=== PATIENT | female | born 1990 | race Caucasian/White ===

== ENCOUNTER → 2021-05-01 09:40 | Outpatient (BNVA) | payer OTHER, SELFPAY | PROVIDERS: PCP Nurse Practitioner Pediatrics; Visit Provider Internal Medicine ==

== ENCOUNTER 2021-06-19 07:46 | Outpatient (REF) | payer OTHER, SELFPAY ==
[2021-06-19 09:01] LABS: Estimated Average Glucose 111 mg/dL; Hemoglobin A1c % 5.5 %
[2021-06-19 10:21] LABS: Alanine Aminotransferase 48 U/L (0-31); Alkaline Phosphatase 56 U/L (39-117); Anion Gap 10 (12-20); Aspartate Amino Transferase 19 U/L (5-31); Bilirubin Total 0.4 mg/dL (0.0-1.0); Blood Urea Nitrogen 10 mg/dL (9-16); Carbon Dioxide 27 mmol/L (22-29); Chloride 107 mmol/L (96-108); Cholesterol 183 mg/dL; Estimated Glomerular Filt Rate > 60; Glucose Random 94 mg/dL (60-115); HDL Cholesterol 34 mg/dL; LDL Cholesterol Calculated 106 mg/dl; Potassium 4.2 mmol/L (3.3-5.1); Sodium 140 mmol/L (135-145); Total Protein 6.9 g/dL (6.5-8.0); Triglycerides 217 mg/dL
[2021-06-19 10:45] LABS: Free T4 (Free Thyroxine) 0.98 ng/dL (0.71-1.85); HCG Quantitative < 2 mIU/mL; Thyroid Stimulating Hormone 3.14 uIU/mL (0.32-4.0)
[2021-06-19 10:49] LABS: Glucose Fasting 95 mg/dL (60-99)
[2021-06-19 10:49] LABS: Glucose 1 Hour 160 mg/dL
[2021-06-19 10:49] LABS: Glucose 2 Hour 150 mg/dL
[2021-06-21 03:41] LABS: LDL Cholesterol Direct 126 mg/dL (<100)
[2021-06-21 05:47] LABS: DHEA Sulfate 174 mcg/dL (18-391)
[2021-06-21 14:25] LABS: Follicle Stimulating Hormone 6.2 mIU/mL; Lutenizing Hormone 8.1 mIU/mL; Prolactin 14.8 ng/mL
[2021-06-25 15:46] LABS: Testosterone, Free 10.3 pg/mL (0.1-6.4); Testosterone, Total 52 ng/dL (2-45)
[2021-06-26 19:27] LABS: Androstenedione 151 ng/dL
[2021-06-29 03:42] LABS: Estradiol Free 0.88 pg/mL; Estradiol, Ultrasensitive 35 pg/mL
[2021-07-08 16:21] LABS: Adrenocorticotropic Hormone 15 pg/mL (6-50)
== END 2021-06-19 07:47 | disposition home or self-care (01) ==
LOC: HO.10HDL 07:46
PROVIDERS: Visit Provider Internal Medicine
DX: L65.9 Nonscarring hair loss, unspecified (principal)
CPT/HCPCS: 36415; 80053; 80061; 82024; 82157; 82627; 82670; 82681; 83001; 83002; 83036; 83498; 83721; 84146; 84402; 84403; 84439; 84443; 84702

== ENCOUNTER → 2021-07-08 09:14 | Outpatient (BNVA) | payer OTHER, SELFPAY | PROVIDERS: PCP Nurse Practitioner Pediatrics; Visit Provider Internal Medicine ==

== ENCOUNTER 2021-09-19 08:40 | Outpatient (REF) | payer OTHER, SELFPAY ==
--- NOTE | ~2021-09-19 | US_ITS ---
EXAMINATION: ULTRASOUND PELVIS COMPLETE CLINICAL INFORMATION: Uterus regular menses, hyperandrogenism. COMPARISON: None TECHNIQUE: Transabdominal and transvaginal ultrasound of the pelvis is performed. FINDINGS: The uterus is anteverted and anteflexed measuring 6.71 cm in length, 3.25 cm in AP and 3.99 cm in transverse dimension. Endometrial thickness is 0.68 cm. There is a small hypoechoic lesion in the posterior body of uterus measuring 0.57 x 0.43 x 0.78 cm. No additional lesions seen. There are small nabothian cysts in the cervix. The right ovary measures 2.9 x 1.8 x 2.1 cm and volume 5.7 mL. There is an exophytic simple cyst measuring 2.1 x 2.0 x 2.0 cm. The left ovary measures 2.7 x 2.0 x 1.9 cm and volume 5.4 mL. There is no free fluid in the cul-de-sac. US/US transvaginal IMPRESSION: Simple right ovarian cyst. Small uterine fibroid in the posterior body of the uterus Small nabothian cysts in the cervix.
--- NOTE | ~2021-09-19 | US_ITS ---
EXAMINATION: ULTRASOUND PELVIS COMPLETE CLINICAL INFORMATION: Uterus regular menses, hyperandrogenism. COMPARISON: None TECHNIQUE: Transabdominal and transvaginal ultrasound of the pelvis is performed. FINDINGS: The uterus is anteverted and anteflexed measuring 6.71 cm in length, 3.25 cm in AP and 3.99 cm in transverse dimension. Endometrial thickness is 0.68 cm. There is a small hypoechoic lesion in the posterior body of uterus measuring 0.57 x 0.43 x 0.78 cm. No additional lesions seen. There are small nabothian cysts in the cervix. The right ovary measures 2.9 x 1.8 x 2.1 cm and volume 5.7 mL. There is an exophytic simple cyst measuring 2.1 x 2.0 x 2.0 cm. The left ovary measures 2.7 x 2.0 x 1.9 cm and volume 5.4 mL. There is no free fluid in the cul-de-sac. US/US pelvic complete IMPRESSION: Simple right ovarian cyst. Small uterine fibroid in the posterior body of the uterus Small nabothian cysts in the cervix.
== END 2021-09-19 08:41 | disposition home or self-care (01) ==
LOC: HO.HMGCX 08:40
PROVIDERS: Visit Provider Internal Medicine
DX: E28.8 Other ovarian dysfunction (principal); L65.9 Nonscarring hair loss, unspecified
CPT/HCPCS: 76830; 76856

== ENCOUNTER 2021-10-19 07:31 | Outpatient (REF) | payer OTHER, SELFPAY ==
[2021-10-19 09:25] LABS: Free T4 (Free Thyroxine) 0.84 ng/dL (0.71-1.85); Thyroid Stimulating Hormone 1.44 uIU/mL (0.32-4.0)
[2021-10-19 09:43] LABS: Vitamin D 25-OH Total 9.4 ng/mL (>30)
[2021-10-21 15:31] LABS: Thyroid Peroxidase Antibodies 35 IU/mL (<9)
[2021-10-24 13:22] LABS: Dexamethasone 340 ng/dL
== END 2021-10-19 07:32 | disposition home or self-care (01) ==
LOC: HO.LAB 07:31
PROVIDERS: Visit Provider Internal Medicine
DX: E28.8 Other ovarian dysfunction (principal); E04.2 Nontoxic multinodular goiter; E55.9 Vitamin D deficiency, unspecified; L65.9 Nonscarring hair loss, unspecified
CPT/HCPCS: 36415; 80299; 82306; 84439; 84443; 86376

== ENCOUNTER → 2021-10-21 08:38 | Outpatient (BNVA) | payer OTHER, SELFPAY | PROVIDERS: PCP Nurse Practitioner Pediatrics; Visit Provider Internal Medicine ==

== ENCOUNTER → 2021-11-20 08:35 | Outpatient (BNVA) | payer OTHER, SELFPAY | PROVIDERS: Visit Provider Obstetrics & Gynecology | DX: N83.209 Unspecified ovarian cyst, unspecified side (principal); N91.5 Oligomenorrhea, unspecified; E28.8 Other ovarian dysfunction | CPT/HCPCS: 99202 ==

== ENCOUNTER 2021-12-09 07:51 | Outpatient (REF) | payer OTHER, SELFPAY | END 2021-12-09 07:52 | disposition home or self-care (01) | LOC: HO.MRI 07:51 | PROVIDERS: Visit Provider Obstetrics & Gynecology | DX: Z13.89 Encounter for screening for other disorder (principal) ==

== ENCOUNTER → 2023-03-11 08:13 | Outpatient (BNVA) | payer OTHER, SELFPAY | PROVIDERS: Visit Provider Internal Medicine ==

== ENCOUNTER 2023-04-07 07:36 | Outpatient (REF) | payer OTHER, SELFPAY ==
--- NOTE | ~2023-04-07 | US_ITS ---
EXAMINATION: US THYROID CLINICAL INFORMATION: Nontoxic multinodular goiter. COMPARISON: None available. TECHNIQUE: Linear transducer grayscale and color Doppler examination with attention to the region of the thyroid. FINDINGS: SIZE: Measurements of the thyroid lobes and nodules are given in sagittal, anteroposterior and transverse dimensions respectively. Right Thyroid Lobe: 5.2 x 1.4 x 2.1 cm, volume 8.0 mL. Parenchyma: The gland echotexture is homogeneous. Thyroid vascularity is normal. Left Thyroid Lobe: 5.0 x 1.4 x 1.7 cm, volume 6.2 mL. Parenchyma: The gland echotexture is homogeneous. Thyroid vascularity is normal. Isthmus: 0.2 cm in maximum AP dimension. Estimated total number of nodules greater than or equal to 1 cm: 1. Laboratory Clerk nodules are described as follows: 1. Location: Right lateral/mid. Size: 0.6 x 0.5 x 0.7 cm, volume 0.09 mL. Nodule characteristics: Composition: Solid (2). Echogenicity: Hypoechoic (2). Shape: Not taller than wide (0). Margins: Smooth (0). Echogenic Foci: None (0). ACR TI-RADS total points: 4 ACR TI-RADS category: 4 2. Location: Left mid. Size: 0.7 x 0.8 x 1.3 cm, volume 0.4 mL. Nodule characteristics: Composition: Solid (2). Echogenicity: Isoechoic (1). Shape: Not taller than wide (0). Margins: Smooth (0). Echogenic Foci: None (0). ACR TI-RADS total points: 3 ACR TI-RADS category: 3 NODES: No lymphadenopathy is seen in the tissue surrounding the thyroid gland. ADDITIONAL FINDINGS: There is a 0.8 x 0.4 x 0.5 cm hyperechoic nodularity abutting the surface of the inferior left lobe of the thyroid. US/US thyroid IMPRESSION: 1. There is a 0.7 cm TR 4 nodule in the right lobe of the thyroid, not meeting size criteria for additional evaluation. 2. There is a 1.3 cm TR 3 nodule in the left lobe of the thyroid, for which a follow-up ultrasound in one year is recommended. 3. Nonspecific hyperechoic 0.8 cm nodule adjacent to the left inferior thyroid, possibly representing a parathyroid lesion/adenoma. Recommend correlation with laboratory workup and if indicated further imaging with a nuclear medicine study. ACR TI-RADS RECOMMENDATION REFERENCE: Ultrasound-guided fine-needle aspiration, followup ultrasound, no further follow up. * TR1 (0 point) and TR2 (2 points): No FNA or follow up. * TR3 (3 points): FNA if more than or equal to 2.5 cm in maximum dimension, followup ultrasound in 1, 3 and 5 years if 1.5 to 2.4 cm in maximum dimension. * TR4 (4-6 points): FNA if more than or equal to 1.5 cm in maximum dimension, followup ultrasound in 1, 2, 3 and 5 years if 1 to 1.4 cm in maximum dimension. * TR5 (more than or equal to 7 points): FNA if more than or equal to 1 cm in maximum dimension, followup ultrasound every year for 5 years if 0.5 to 0.9 cm in maximum dimension. * TR3, TR4 or TR5 nodules that are below the size threshold for followup receive no follow up.
[2023-04-07 09:28] LABS: Alanine Aminotransferase 59 U/L (0-31); Albumin Level 3.9 g/dL (3.5-5.0); Alkaline Phosphatase 50 U/L (39-117); Anion Gap 9 (12-20); Aspartate Amino Transferase 24 U/L (5-31); Bilirubin Total 0.3 mg/dL (0.0-1.0); Blood Urea Nitrogen 9 mg/dL (9-16); Calcium 9.1 mg/dL (8.4-10.2); Carbon Dioxide 29 mmol/L (22-29); Chloride 107 mmol/L (96-108); Estimated Glomerular Filt Rate > 60; Glucose Random 90 mg/dL (60-115); Potassium 4.3 mmol/L (3.3-5.1); Sodium 141 mmol/L (135-145); Total Protein 7.1 g/dL (6.5-8.0)
[2023-04-07 09:41] LABS: Cortisol Random 8.9 ug/dL
[2023-04-11 14:02] LABS: Adrenocorticotropic Hormone 30 pg/mL (6-50)
[2023-04-15 13:32] LABS: Dexamethasone 54 ng/dL
== END 2023-04-07 07:37 | disposition home or self-care (01) ==
LOC: HO.US 07:36
PROVIDERS: Visit Provider Internal Medicine
DX: E04.2 Nontoxic multinodular goiter (principal); E28.8 Other ovarian dysfunction
CPT/HCPCS: 36415; 76536; 80053; 80299; 82024; 82533

== ENCOUNTER 2023-04-17 07:26 | Outpatient (REF) | payer OTHER, SELFPAY ==
--- NOTE | ~2023-04-17 | CT_ITS ---
EXAMINATION: CT ABDOMEN AND PELVIS WITHOUT AND WITH CONTRAST CLINICAL INFORMATION: Other ovarian dysfunction additional notes/special instructions adrenal protocol. COMPARISON: None available. TECHNIQUE: Adrenal protocol CT was performed Contiguous axial thin section helical images of the abdomen were performed before and after the administration of oral contrast and 85 mL of Omnipaque 350 intravenous contrast. Two sets of post contrast imaging were obtained, one during the portal venous phase and another after a 10 minute delay. The data set was reformatted in the coronal and sagittal planes and reviewed on an independent workstation. This CT examination was performed using dose optimization techniques as appropriate, variously including the following: *Automated exposure control *Adjustment of mA and/or kV according to patient size (this includes techniques or standardized protocols for targeted exams where dose is matched to indication/reason for exam; i.e. extremities or head) *Use of iterative reconstruction technique DLP: 1417 mGy-cm LUNG BASES: The visualized lung bases are unremarkable. LIVER, GALLBLADDER, AND BILIARY TREE: The liver is enlarged and demonstrates markedly decreased attenuation consistent with hepatic steatosis. No focal hepatic lesion or biliary ductal dilatation is present. The gallbladder is unremarkable with no evidence of radiopaque gallstones, gallbladder wall thickening, or obvious pericholecystic inflammatory changes. PANCREAS: Unremarkable. SPLEEN: Unremarkable. A splenule is present. ADRENAL GLANDS: There is some minimal thickening of the left adrenal gland but a definite adrenal nodule is not identified. In the thickened area, precontrast, postcontrast and delayed postcontrast Hounsfield units are 18, 57 and 15 which would correspond with an absolute washout of over 100% with relative washout of about 74% consistent with benign findings. KIDNEYS AND URETERS: The kidneys are normal in size, shape, and attenuation. No hydronephrosis, hydroureter, or calculi seen. No perinephric stranding. GASTROINTESTINAL TRACT: The small and large bowel are unremarkable. The appendix is unremarkable. ABDOMINAL WALL: No significant hernia is appreciated. LYMPH NODES: No retroperitoneal lymphadenopathy. VASCULAR: Unremarkable. OSSEOUS STRUCTURES: Unremarkable. BLADDER: Normal. PELVIS: Anteverted uterus appears normal. Benign bilateral ovarian cysts are present. CT/CT abdomen wo/w IV con IMPRESSION: 1. There is some mild thickening of the left adrenal gland but a definite nodule is not seen. 2. Incidental note made of an enlarged fatty liver, benign bilateral ovarian cysts. Fleischner guidelines were followed. .
[2023-04-17 08:26] LABS: Cortisol Random 10.4 ug/dL
[2023-04-17] MEDS: iohexoL 350 MG/ML 100 ML INFUS..BTL IV (09:31)
[2023-04-19 06:38] LABS: DHEA Sulfate 176 mcg/dL (14-349)
[2023-04-21 22:47] LABS: Adrenocorticotropic Hormone 15 pg/mL (6-50)
== END 2023-04-17 07:27 | disposition home or self-care (01) ==
LOC: HO.CT 07:26
PROVIDERS: Visit Provider Internal Medicine
DX: E28.8 Other ovarian dysfunction (principal)
CPT/HCPCS: 36415; 74170; 82024; 82533; 82627; Q9967

== ENCOUNTER 2023-05-12 07:17 | Outpatient (REF) | payer OTHER, SELFPAY ==
[2023-05-12 07:58] LABS: Anion Gap 13 (12-20); Blood Urea Nitrogen 9 mg/dL (9-16); Calcium 9.1 mg/dL (8.4-10.2); Carbon Dioxide 24 mmol/L (22-29); Chloride 109 mmol/L (96-108); Estimated Glomerular Filt Rate > 60; Glucose Random 102 mg/dL (60-115); Potassium 4.1 mmol/L (3.3-5.1); Sodium 142 mmol/L (135-145)
[2023-05-12 08:20] LABS: Cortisol Random 10.4 ug/dL
[2023-05-13 10:59] LABS: DHEA Sulfate 169 mcg/dL (14-349)
[2023-05-13 12:54] LABS: Sex Hormone Binding Globulin 24 nmol/L (17-124)
[2023-05-16 06:19] LABS: Adrenocorticotropic Hormone 31 pg/mL (6-50)
[2023-05-16 15:58] LABS: Metanephrine, Free 35 pg/mL (<=57); Normetanephrines, Free 51 pg/mL (<=148); Total Metanephrine, Free 86 pg/mL (<=205)
[2023-05-16 17:09] LABS: Testosterone, Free 7.2 pg/mL (0.1-6.4); Testosterone, Total 42 ng/dL (2-45)
[2023-05-19 14:47] LABS: Renin 1.13 ng/mL/h (0.25-5.82)
[2023-05-27 17:39] LABS: Catecholamine Frac, Total 217 pg/mL
== END 2023-05-12 07:18 | disposition home or self-care (01) ==
LOC: HO.LAB 07:17
PROVIDERS: Visit Provider Internal Medicine
DX: E27.8 Other specified disorders of adrenal gland (principal)
CPT/HCPCS: 36415; 80048; 82024; 82088; 82384; 82533; 82627; 83835; 84244; 84270; 84402; 84403

== ENCOUNTER 2023-05-18 08:14 | Outpatient (REF) | payer OTHER, SELFPAY ==
[2023-05-18 10:01] LABS: Creatinine, mg/dL 68.09
[2023-05-18 18:07] LABS: Creatinine, 24Hr Urine 1.7 G/Day (1.0-2.0); Total Volume 24 Hour Urine 2525 mL
[2023-05-21 15:48] LABS: CATF, 24 Ur Volume 2525 mL; CATF-24Ur Creatinine 1.66 g/24 h (0.50-2.15); Catecholamines,Tot. (E+NE) 24U 46 mcg/24 h (26-121); Dopamine, 24 Ur 363 mcg/24 h (52-480); Norepinephrine, 24 Ur 46 mcg/24 h (15-100)
[2023-05-22 14:24] LABS: Metanephrine, Free 24U 128 mcg/24 h (36-190); Normetanephrine, Free 24U 424 mcg/24 h (35-482); Total Metanephrine, Free 24U 552 mcg/24 h (115-695); Total Volume 24U 2525 mL
[2023-05-23 21:43] LABS: Aldosterone, 24Hr Urine 8.1 mcg/24 h; Creatinine 24Hr Urine 1.67 g/24 h (0.50-2.15); Total Volume 2525 mL
[2023-05-24 12:13] LABS: Cortisol Free, 24 Hr Urine 32.9 mcg/24 h (4.0-50.0); Creatinine, 24 Hr Urine 1.67 g/24 h (0.50-2.15); Total Volume, 24 Hr Urine 2525 mL
== END 2023-05-18 08:15 | disposition home or self-care (01) ==
LOC: HO.LAB 08:14
PROVIDERS: PCP Student in an Organized Health Care Education/Training Program; Visit Provider Internal Medicine
DX: E27.8 Other specified disorders of adrenal gland (principal)
CPT/HCPCS: 36415; 82088; 82384; 82530; 82570; 83835